=== PATIENT | female | born 1960 | race Caucasian/White ===

== ENCOUNTER → 2016-07-09 | Outpatient (CLI) | payer BC ==
[~2016-07-09] MED LIST: PROTEIN SHAKE PO
== END | disposition home or self-care (01) ==
LOC: C.PAPS 09:23
PROVIDERS: ATTEND Obstetrics & Gynecology
DX: Z01.419 Encounter for gynecological examination (general) (routine) without abnormal findings (principal)

== ENCOUNTER → 2016-07-10 | Outpatient (CLI) | payer BC ==
--- NOTE | 2016-07-14 12:54 | PULMONARY FUNCTION TEST ---
Interpretation is based off ATS standards. Spirometry: Mild obstructive ventilatory disease. FEV1/FVC: 77. Lung volumes: Within normal limits. Diffusion capacity: Within normal limits. INTERPRETATION: Mild obstructive ventilatory disease. Based off GOLD criteria this would be normal pulmonary function study.
--- NOTE | 2016-07-20 07:45 | PULMONARY FUNCTION TEST ---
Interpretation is based off ATS criteria SPIROMETRY: Mild obstructive ventilatory disease, FEV1 116% with no significant reversibility. DIFFUSION CAPACITY: Within normal limits. LUNG VOLUMES: Within normal limits. INTERPRETATION: Mild obstructive ventilatory disease based off ATS. GOLD criteria would consider this within normal limits.
== END | disposition home or self-care (01) ==
LOC: C.RC 12:27
PROVIDERS: ATTEND Family Medicine
DX: R05 Cough (principal); R07.89 Other chest pain

== ENCOUNTER → 2016-07-23 | Outpatient (CLI) | payer BC ==
--- NOTE | 2016-07-23 13:38 | DIAGNOSTIC IMAGING REPORT ---
TWO VIEW CHEST CLINICAL HISTORY: Chronic cough. FINDINGS: PA and lateral chest radiographs are obtained. No prior studies are available for comparison at the time of dictation. The examination is degraded by large body habitus. The cardiomediastinal silhouette is unremarkable. A 1.8 cm density projects over the left lower lung. This projects over a lower rib and may represent superimposition of shadows. The lungs and pleural spaces are otherwise clear. There is no pneumothorax. The skeletal structures appear osteopenic. Degenerative change is noted throughout the thoracic spine. IMPRESSION: 1. No active disease in the chest. 2. A 1.8 cm density projects of the left lung base seen on only 1 of the 2 PA views. This likely represents superimposed shadows. A repeat PA examination with oblique views is recommended for reassessment. Electronically signed by: Yuniel Avina M.D. 07/23/2016 1:37 PM Dictated Date/Time: 07/23/2016 1:35 PM
== END | disposition home or self-care (01) ==
LOC: C.RAD1850 13:05
PROVIDERS: ATTEND Family Medicine
DX: R05 Cough (principal); M54.5 Low back pain

== ENCOUNTER → 2016-10-06 | Outpatient (CLI) | payer BC ==
--- NOTE | 2016-10-07 16:00 | MAMMOGRAPHY REPORT ---
BILATERAL DIGITAL SCREENING MAMMOGRAM TOMOSYNTHESIS WITH CAD: 10/06/2016 CLINICAL HISTORY: Routine screening. Patient has no complaints. TECHNIQUE: Breast tomosynthesis in addition to standard 2D mammography was performed. Current study was also evaluated with a Computer Aided Detection (CAD) system. COMPARISON: Comparison is made to exams dated: 09/13/2015 mammogram, 07/26/2012 mammogram, 08/14/2010 [facility], 06/29/2008, and 07/20/2006. BREAST COMPOSITION: The tissue of both breasts is heterogeneously dense, which may obscure small mas ses. FINDINGS: The parenchymal pattern is similar to prior mammograms. No developing mass, architectural distortion or cluster of suspicious microcalcifications is seen in either breast. IMPRESSION: ACR BI-RADS CATEGORY 2: BENIGN There is no mammographic evidence of malignancy. A 1 year screening mammogram is recommended. The pa tient will receive written notification of the results. Approximately 10% of breast cancers are not detected with mammography. A negative mammographic report should not delay biopsy if a clinically suggestive mass is present. Lorna Pitts M.D. ay/:10/06/2016 18:26:30 Class C Driver: Beverly GARCIA)(Alphonse)([place]), [facility] letter sent: Normal 1/2 BI-RADS Code: ACR BI-RADS Category 2: Benign
== END | disposition home or self-care (01) ==
LOC: C.MAMM 13:40
PROVIDERS: ATTEND Obstetrics & Gynecology
DX: Z12.31 Encounter for screening mammogram for malignant neoplasm of breast (principal)

== ENCOUNTER → 2017-01-29 | Outpatient (CLI) | payer BC ==
--- NOTE | 2017-01-29 09:35 | DIAGNOSTIC IMAGING REPORT ---
CHEST 2 VIEWS ROUTINE CLINICAL HISTORY: Abnormal chest radiograph. COMPARISON STUDY: Chest radiograph July 23, 2016. FINDINGS: Slight elevation of the right hemidiaphragm is noted. No pneumothorax or pleural effusion is present. The 1.8 cm left lower lung density shown on prior exam of July 23, 2016 is not visualized on this study. Lungs are clear. Cardiac size is normal. Mediastinal contours are normal. There is no evidence of pulmonary edema. IMPRESSION: 1. Nonvisualization of the left lower lung density shown on prior exam which was likely artifactual. 2. No acute cardiopulmonary findings. Electronically signed by: Richard Martínez M.D. 01/29/2017 9:33 AM Dictated Date/Time: 01/29/2017 9:32 AM
== END | disposition home or self-care (01) ==
LOC: C.RAD1850 09:12
PROVIDERS: ATTEND Family Medicine
DX: R93.8 Abnormal findings on diagnostic imaging of other specified body structures (principal)